=== PATIENT | female | born 1965 | race Caucasian/White ===

== ENCOUNTER 2016-12-28 22:48 | Emergency (ER) | payer SELFPAY ==
[~2016-12-28] VITALS: Ht 167.6 cm; Wt 68.0 kg
[~2016-12-28 22:48] MED LIST: ALUM5LIQ PO; PROM25SU8 PO
[2016-12-28 22:50] VITALS: BP 154/76; PULSE 90; RESP 16; TEMP 97.4; O2SAT 99
--- NOTE | 2016-12-28 23:22 | PD ---
HPI Chief Complaint: Back/ Neck Pain or Injury Time Seen by Provider: 23:22 Travel History International Travel<30 days: No Contact w/Intl Traveler<30days: No Traveled to known affect area: No History of Present Illness HPI 51-year-old female with history of sciatica presents to the emergency department following a slip and fall. Patient states that she was walking in the hallway here at [place]. She states she was texting while walking and she did not see apparent fluid on the floor. She states she stepped and slipped, landing on her left knee. She did not strike her head or lose consciousness. She states that this "tweaked" her back and her right sided sciatica is acting up. She denies any focal deficits or weakness. No loss of bowel or bladder. No lower extremity weakness. No other symptoms to report. PFSH Past Medical History Anxiety: Yes Depression: Yes Diminished Hearing: No Diverticulitis: Yes Ulcer: Yes ?: Not Menopausal: Yes : 3 Para: 2 Miscarriage: 1 Past Surgical History Abdominal Surgery: Yes (hernia) Cholecystectomy: Yes Other Surgery: Yes (colon ca resection) Social History Alcohol Use: No Tobacco Use: Yes Substance Use: Yes (occasional marijuana) Allergies-Medications (Allergen,Severity, Reaction): Coded Allergies: Compazine (Verified Allergy, Severe, 02/29/16) Reported Meds & Prescriptions Reported Meds & Active Scripts Active Robaxin (Methocarbamol) 500 Mg Tab 500 Mg PO QID PRN Medrol Dosepak (Methylprednisolone) 4 Mg Dspk 4 Mg PO DIRECTED Per Pharmacist direction Promethazine Hcl (Promethazine HCl) 25 Mg Tab 25 Mg PO Q6HR PRN FOR NAUSEA/VOMITING Maalox (Al Hydrox/Mg Hydrox/Simethicone) Susp 30 Ml PO Q6H PRN 7 Days Review of Systems Except as stated in HPI: all other systems reviewed are Neg Physical Exam Narrative GENERAL: Well-nourished, well-developed female patient, in no acute distress SKIN: Focused skin assessment warm/dry. HEAD: Normocephalic. Atraumatic EYES: No scleral icterus. No injection or drainage. NECK: Supple, trachea midline. No JVD or lymphadenopathy. CARDIOVASCULAR: Regular rate and rhythm without murmurs, gallops, or rubs. RESPIRATORY: Breath sounds equal bilaterally. No accessory muscle use. GASTROINTESTINAL: Abdomen soft, non-tender, nondistended. MUSCULOSKELETAL: No cyanosis. Abrasion on the anterior aspect of the left knee. mild edema. Patient has full flexion and extension of the left knee. Distal pulses are palpable. Cap refill within normal limits. BACK: No spinal tenderness. No CVA tenderness. Data Data Last Documented VS Vital Signs Date Time Temp Pulse Resp B/P Pulse Ox O2 Delivery O2 Flow Rate FiO2 12/28/16 22:50 97.4 90 16 154/76 99 Orders Ketorolac Inj (Toradol Inj) (12/28/16 23:30) Knee, Complete (4vws) (12/28/16 ) ^ Vladimir Bandage (12/29/16 00:03) MDM Medical Decision Making Medical Screen Exam Complete: Yes Emergency Medical Condition: Yes Medical Record Reviewed: Yes Differential Diagnosis Knee contusion versus fracture versus sprain Sciatica versus sacroiliitis versus low back pain versus strain versus discogenic pain Narrative Course 51 year-old female presents to emergency department following a slip and fall. Patient appears without distress. She has no obvious deformities, focal deficits or weakness. X-ray imaging of the left knee is without acute concern. Patient was treated for pain. She is discharged to follow-up with primary care provider. She agrees to return immediately with any acute worsening symptoms. Diagnosis Primary Impression: Contusion of left knee Qualified Code: S80.02XA - Contusion of left knee, initial encounter Additional Impression: Sciatica of right side Referrals: Primary Care Physician Patient Instructions: Contusion in Adults (ED), General Instructions, Sciatica (ED) Additional Instructions: Ice and/or warm moist heat may help to alleviate symptoms Avoid activity that exacerbates pain Avoid prolonged bedrest Follow-up with a primary care provider Return immediately with any acute worsening of symptoms Med/Other Pt SpecificInfo: Prescription(s) given Scripts Methocarbamol (Robaxin)500 Mg [id number] Mg PO QID PRN (MUSCLE SPASM) #20 TAB Ref 0 Prov:Hanna Chang 12/29/16 Methylprednisolone Dosepak (Medrol Dosepak)4 Mg Dspk4 Mg PO DIRECTED #1 DSPK Ref 0 Per Pharmacist direction Prov:Hanna Chang 12/29/16 Disposition: 01 DISCHARGE HOME Condition: Stable Hanna Chang December 28, 2016 23:22
[2016-12-28] MEDS ORDERED: KETOROLAC TROMETHAMINE 60 MG/2 ML (IM) VIAL IM ONE (23:30)
--- NOTE | 2016-12-28 23:46 | RADRPT ---
EXAM DATE/TIME: 12/28/2016 23:31 [facility] COMPARISON: No previous studies available for comparison. INDICATIONS : Trauma, fall. MEDICAL HISTORY : None. SURGICAL HISTORY : None. ENCOUNTER: Initial ACUITY: 1 day PAIN SCORE: 6/10 LOCATION: Left knee. FINDINGS: Four view examination of the left knee demonstrates no evidence of fracture or dislocation. Bony min eralization is normal. The articular surfaces are intact. The suprapatellar soft tissues have a nor mal configuration. CONCLUSION: Normal examination for a patient of this age. Jeff Joe MD on December 28, 2016 at 23:42 Board Certified Radiologist. This report was verified electronically.
[2016-12-29] MEDS ORDERED: MEDR4PAK PO (00:03)
[2016-12-29] MEDS ORDERED: ROBA500T PO (00:03)
== END 2016-12-29 01:09 | disposition home or self-care (01) ==
LOC: NEPD 22:48
DX: S80.02XA Contusion of left knee, initial encounter (principal); M54.31 Sciatica, right side; W01.0XXA Fall on same level from slipping, tripping and stumbling without subsequent striking against object, initial encounter; Y93.01 Activity, walking, marching and hiking; Y92.232 Corridor of hospital as the place of occurrence of the external cause; Y99.9 Unspecified external cause status
CPT/HCPCS: 73564; 96372; 99283; J1885